=== PATIENT | female | born 1945 | race Hispanic/Latino ===

== ENCOUNTER → 2020-07-23 | Outpatient (CLI) | payer OTHER ==
[~2020-07-23] MED LIST: FENO160T16 PO; LEVO50TA11 PO; LOSARTAN PO; PRAV40TA3 PO; PREM125 PO
== END | disposition home or self-care (01) ==
LOC: RAH 11:24
PROVIDERS: ATTEND Internal Medicine Cardiovascular Disease
DX: Z13.6 Encounter for screening for cardiovascular disorders (principal)
CPT/HCPCS: 75571